=== PATIENT | female | born 2000 | race Hispanic/Latino ===

== ENCOUNTER 2020-03-12 04:24 | Inpatient (IN) | payer OTHER ==
[2020-03-11 14:43] LABS: Absolute Lymphocytes (CBC) 1.8 K/uL (0.7-4.9); Basophils % 0.2 % (0-1.3); Hematocrit 33.3 % (36.0-45.0); Lymphocytes % 18.5 % (15.3-44.8); MPV 11.3 fL (7.6-11.3); RBC Red Blood Cell Count 3.79 M/uL (3.86-4.86)
[2020-03-11 14:44] LABS: Urine Appearance CLOUDY; Urine Bilirubin NEGATIVE (NEG); Urine Blood NEGATIVE (NEG); Urine Color YELLOW; Urine Glucose NEGATIVE (NEG); Urine Protein NEGATIVE (NEG); Urine Specific Gravity 1.025 (1.005-1.030); Urine pH 6.5 (5.0-7.0)
[2020-03-11 14:50] LABS: Protime INR 0.93
[2020-03-11 15:01] LABS: Urine Bacteria >50 /HPF (<20); Urine Culture Reflex Order NOT NEEDED; Urine RBC NONE SEEN /HPF (NONE SEEN)
[2020-03-11 15:02] LABS: Urine Mucus 1+ /HPF (NONE SEEN)
[2020-03-12 03:12] LABS: RPR (Rapid Plasma Reagin) NON-REACT (NON-REACT)
--- OUTSIDE RECORDS SUMMARY | 2020-03-12 04:26 | XMS REPORT | Summary of Care ---
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 Jerrell Serrano MD [address] [place] [phone] Supervision of Clinical Laboratory [facility] other normal - [facility] [address] [facility] [address] [place] [phone] Allergies Active Allergy Reactions Severity Noted Date Comments Amoxicillin Hives 06/25/2019 Vomiting documented as of this encounter (statuses as of 12/28/2019) Medications Medication Sig Dispensed Refills Start Date End Date Status phenazopyridine 200 mg Take 1 tablet by 9 tablet 0 06/25/2019 Active tabletIndications: mouth 3 (three) Acute cystitis with times daily. hematuria 25/iron Take by mouth. 0 Active fum/folic/dha (-1 ORAL) pyridoxine HCl, vitamin Take by mouth. 0 Active B6, (VITAMIN B-6 ORAL) iron Take by mouth. 0 Acti ve bis-gly/FA/C/B12/Ca/suc c (IRON-150 ORAL) hydrOXYzine (VISTARIL) Take 1 capsule 40 capsule 1 09/27/2019 Active 25 mg by mouth 3 capsuleIndications: (three) times Rash and other daily as needed nonspecific skin for Itching. eruption proMETHazine 25 mg Take 1 tablet by 15 tablet 0 09/27/2019 Active tabletIndications: mouth every 6 Nausea and vomiting (six) hours as during needed for Nausea and Vomiting (N/V). metroNIDAZOLE (FLAGYL) Take 1 tablet by 13 tablet 0 10/09/2019 Active 500 mg mouth 2 (two) tabletIndications: BV times daily. (bacterial vaginosis) triamcinolone acetonide Apply to 80 g 2 12/06/2019 Active 0.1 % area(s) 2 (two) ointmentIndications: times daily. Other atopic dermatitis documented as of this encounter (statuses as of 12/28/2019) Active Problems Problem Noted Date Obesity (BMI 30-39.9) 08/02/2019 Estimated Date of Delivery Comments Yes 03/19/2020 Based on last menstr ual period of 06/13/2019 documented as of this encounter (statuses as of 12/28/2019) Immunizations Name Administration Dates Next Due TDAP 12/28/2019 documented as of this encounter Social History Tobacco Use Types Packs/Day Years Used Date Never Smoker Smokeless Tobacco: Never Used Alcohol Use Drinks/Week oz/Week Comments Not Currently Estimated Date of Delivery Comments Yes 03/19/2020 Based on last menstr ual period of 06/13/2019 Sex Assigned at Date Recorded Not on file COVID-19 Exposure Response Date Recorded In the last month, have you been in contact with No / Unsure 12/28/2019 3:30 PM CDT someone who was confirmed or suspected to have Coronavirus / COVID-19? documented as of this encounter Last Filed Vital Signs Not on filedocumented in this encounter Nursing Notes Princess Domi Davis - 12/28/2019 4:30 PM CDT Venipuncture collection performed by clean technique on the right anticubitus. Total of 1 attempts were made. Slight pressure and a bandage/dressing were applied to the site(s). The patient experiencedno complications. The following specimens were processed according to instructions and sent to [facility] laboratories per lab order on 12/28/2019: LT BLUE SST 3 RED LAV 1 PPT DK GREEN (LiHep) DK GREEN (SodH) MARISCAL DK BLUE (K2) DK BLUE (S) ACD Blood Culture NIPT/NTD documented in this encounter Plan of Treatment Date Type Specialty Care Team Description 01/11/2020 Routine Obstetrics & Serrano, Jerrell hanna MD Visit Gynecology [address] [place] [phone] Name Type Priority Associated Diagnoses Date/Ti me GLUCOSE 1 HOUR POST LAB Routine Supervision of other 12/28/2019 4:38 PM CDT PRANDIAL normal CBC WITH DIFF LAB Routine Supervision of other 2019 4:38 PM CDT normal GALV ONLY - SYPHILIS LAB Routine Supervision of other 12/28/2019 4:38 PM CDT IGG/IGM normal HIV 1/2 AG-AB WITH LAB Routine Supervision of other 0 12/28/2019 4:38 PM CDT REFLEX normal Health Maintenance Due Date Last Done Comments VARICELLA VACCINES (1 of 2 - 02/03/2000 2-dose childhood series) MENINGOCOCCAL B VACCINES (1 of 2009 2 - Risk Bexsero 2-dose series) HPV VACCINES (1 - 2-dose 2010 series) WELL CARE VISIT: 12-21 YEARS 2011 (yearly) DTaP,Tdap,and Td Vaccines (1 - 2018 Tdap) INFLUENZA VACCINE (#1) 2020 CHLAMYDIA SCREENING 10/07/2020 10/08/2019, 08/30/2019 Depression Screening 11/29/2020 11/30/2019 MENINGOCOCCAL VACCINE Aged Out No longer eligible based on patient's age to complete this to pic PNEUMOCOCCAL 0-64 YEARS Aged Out No longe r eligible based COMBINED SERIES on patient's age to complete this to pic documented as of this encounter Results Not on filedocumented in this encounter Visit Diagnoses Diagnosis Supervision of other normal documented in this encounter Insurance Payer Benefit Plan / Subscriber ID Effective Dates Phone Addre ss Type Group AETNA AETNA HMO [id number] 2015-[facility] O t [place] [facility] [place] [id number] 2019-Present Medicaid HEALTH PLAN - [facility] MANAGED MEDICAID documented as of this encounter
--- OUTSIDE RECORDS SUMMARY | 2020-03-12 04:26 | XMS REPORT | Summary of Care ---
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 Reason for Visit Reason Comments VISIT Encounter Details Date Type Department Care Team Description 12/28/2019 Routine [facility] Women's Patricia Serrano, Supervision of other normal (Primary Dx); Visit [facility] Supervision of high risk , ante ; [address] Previous section co mplicating ; [facility] Clinics [facility] Rash and other nonspecific skin eruption [address] [place] [address] [phone] [place], [place] [phone] Allergies Active Allergy Reactions Severity Noted Date [...] of this encounter Last Filed Vital Signs Vital Sign Reading Time Taken Comments Blood Pressure 122/61 12/28/2019 3:55 PM CDT Pulse 107 12/28/2019 3:55 PM CDT Temperature - - Respiratory Rate - - Oxygen Saturation - - Inhaled Oxygen Concentration - - Weight 76.4 kg (168 lb 6.4 oz) 12/28/2019 3:55 PM CDT Height 147.3 cm (4' 10") 12/28/2019 3:55 PM CDT Body Mass Index 35.2 12/28/2019 3:55 PM CDT documented in this encounter Patient Instructions Patient InstructionsBettina Kelly Cathy, LI - 12/28/2019 4:15 PM CDT Patient Education Blood Glucose Screening During Your healthcare provider will talk with you about blood glucose screening. Gestational diabetesis diabetes that only women get. Changes in your body during can cause high blood sugar (glucose). This can cause problems for you and your baby. It is a serious condition, but it can be controlled. Who is at risk for gestational diabetes? You are at risk of getting gestational diabetes if any of the following risk factors apply to you.The riskfor gestational diabetes becomes higher as your number of risk factors increases: You are , , , , or . You weigh more than your healthcare provider says is healthy for you. You have a relative with diabetes. You are older than age 25. You had gestational diabetes during a past . You had a stillbirth or a very large baby before. You have a history of abnormal glucose tolerance. You have sugar in your urine at the first visit. You have metabolic syndrome, polycystic ovary syndrome (PCOS), currently use glucocorticoids, or have hypertension. You have multiple gestation (twins, etc.). What happens during a screening? Here is what to expect during a blood glucose screening: While conflicting recommendations for screening exist, the [place] [employer] currently recommends universal screening for gestational diabetes.Your risk for gestational diabetes will determine when youare screened. Women are tested at 24 to 28 weeks of . Women at high risk may be tested when they first learn they are . To do the screening, a blood sample is taken and your blood sugar level is measured. If the results show a high blood sugar level, a glucose tolerance test may be ordered. You will drink a specific amount of sugar.This test measures the amount of time it takes for sugar to leave your blood. The testwill determine if you have gestational diabetes. What to know if you test positive Here are some things you need to know: Gestational diabetes is treatable. The best way to control gestational diabetes is to find out you have itas early as possibleand start treatment quickly. Gestational diabetes can cause problems for the mother during . It can also cause problems with the baby during , delivery, and after. Treatment greatly lowers the chancefor problems. The changes in your body that cause gestational diabetes normally happen only when you are . After the baby is born, your body goes back to normal and the condition goes away. You may be more likely to have type 2 diabetes later, though. So talk to your healthcare provider about ways to help prevent type 2 diabetes. Treating gestational diabetes Here is how to treat gestational diabetes: Youll need to check your blood sugar regularly. You can do this at home by pricking your finger and checking a drop of blood on a glucose monitor. Your healthcare provider will show you how and when to check your blood sugar and discuss your target blood sugar level. To manage your blood sugar, you will be given a special plan. It will likely involve planning your meals and getting regular exercise. Some women need to take a hormone called insulin, or an oral hypoglycemic medicine to help control their blood sugar. [employer] last reviewed this educational content on 02/06/201719993761-2844 [employer]. [address] [place] [address]. All rights reserved. This information is not intended as a substitute for professional medical care. Always follow your healthcare professional's instructions. documented in this encounter Progress Notes Patricia Serrano MD - 12/28/2019 4:15 PM CDT Chief complaint: Chief Complaint Patient presents with VISIT HPI Luciana Farah is a 19 year old female with a 28w2d IUP presents for her routine visit. She reports +FM. She denies pain, contractions, LOF, or VB. The patient has no reports of headache, visual changes, epigastric pain, significant peripheral or facial edema or shortness of breath. Patient did see dermatology for her rash which she has had for several years. She was placed on triamcinolone cream. Histories OB History Para Term AB Living 2 1 1 1 SAB TAB Ectopic Multiple Live Births 1 # Outcome Date GA Lbr Ghulam/2nd Weight Sex Delivery Anes PTL Lv 2 Current 1 Term 04/08/17 38w0d 7 lb 10 oz (3.459 kg) M CS-Unspec YONI Past Medical History: Diagnosis Date Anemia Cyst of right ovary Family History Problem Relation Age of Onset No Significant Medical Problems Mother No Significant Medical Problems Father Diabetes Maternal Grandmother Hypertension Maternal Grandfather Diabetes Paternal Grandfather Hypertension Paternal Grandmother Family Status Relation Name Status Mo Alive Fa Alive MGMo Alive MGFa Alive PGFa Alive PGMo Alive Past Surgical History: Procedure Laterality Date SECTION Social History Socioeconomic History Marital status: Single Spouse name: Not on file Number of children: Not on file Years of education: Not on file Highest education level: Not on file Occupational History Not on file Social Needs Financial resource strain: Not on file Food insecurity Worry: Not on file Inability: Not on file Transportation needs Medical: Not on file Non-medical: Not on file Tobacco Use Smoking status: Never Smoker Smokeless tobacco: Never Used Substance and Sexual Activity Alcohol use: Not Currently Drug use: Not Currently Sexual activity: Yes Partners: Male control/protection: None Lifestyle Physical activity Days per week: Not on file Minutes per session: Not on file Stress: Not on file Relationships Social connections Talks on phone: Not on file Gets together: Not on file Attends oriental orthodox service: Not on file Active member of club or organization: Not on file Attends meetings of clubs or organizations: Not on file Relationship status: Not on file Intimate partner violence Fear of current or ex partner: Not on file Emotionally abused: Not on file Physically abused: Not on file Forced sexual activity: Not on file Other Topics Concern Not on file Social History Narrative Patient denies abuse, feels safe. Orthodox preference: Rastafari No pets at home. Lives in house with boyfriend and son. Social History Substance and Sexual Activity Sexual Activity Yes Partners: Male control/protection: None Labs I have reviewed the patient's labs. Radiology No new radiology. Allergies Luciana is allergic to amoxicillin. Medications Luciana has a current medication list which includes the following prescription(s): triamcinolone acetonide, metronidazole, hydroxyzine, iron bis- gly/fa/c/b12/ca/succ, promethazine, pyridoxine hcl (vitamin b6), 25/iron fum/folic/dha, and phenazopyridine. Review of Systems Constitutional: Negative. HENT: Negative. Eyes: Negative. Respiratory: Negative. Breasts: Negative. Cardiovascular: Negative. Gastrointestinal: Negative. Genitourinary: Negative. Musculoskeletal: Negative. Skin: Negative. Neurological: Negative. Psychiatric/Behavioral: Negative. Endocrine: Endocrine negative BP 122/61 | Pulse 107 | Ht 4' 10" (1.473 m) | Wt 168 lb 6.4 oz (76.4 kg) | LMP 06/13/2019 | BMI35.20 kg/m Pregravid BMI: 31.15 Physical Exam Vitals reviewed. Constitutional: She is oriented to person, place, and time. She appears well- developed and well-nourished. Pulmonary/Chest: Normal inspiratory effort. Abdominal: Abdomen is soft. No mass palpated. No tenderness present. There is no rigidity and no guarding. Neuro/Psychiatric: She has a normal mood and affect. She is oriented to person, place, and time. Skin: Skin normal. Uterus: Soft, gravid, non-tender Assessment/Plan Supervision of other normal (primary encounter diagnosis) Comment: Appears well. See history of present illness Plan: GLUCOSE 1 HOUR POST PRANDIAL, CBC WITH DIFF, GALV ONLY - SYPHILIS IGG/IGM, HIV 1/2 AG-AB WITH REFLEX, TDAP VACCINE, >10 YRS, IM Begin kick count monitoring Previous section complicating Comment: Previous section secondary to breech induction/patient desire per operative [facility] from 04/08/2017. Record reviewed with low transverse uterine incision. Patient currently desires Plan: Continue to evaluate for success of . growth ultrasound as continues Rash and other nonspecific skin eruption Comment: Papular rash over her arms/thighs present for years. Dermatology recommending triamcinolonecream. Previous total bile acids/CMP normal Obesity in Comment: BMI 35.2. 6 lb weight gain since last visit, 19 lb TWG. Dietary counseling - avoid sweets, added sugars, sweetened beverages and processed carbs. Concentrate on lean proteins, vegetables and fruits, and healthy fats. Drink plenty of water. Try to get 30 minutes of moderate exercise/walking onmost days. Return to clinic in 3 weeks. This visit did not involve counseling and coordination that comprised more than 50% of the visit time. Patricia Serrano MD documented in this encounter Miscellaneous Notes OB Summary Note - Patricia Serrano MD - 12/28/2019 4:15 PM CDTAge: 19 year old GA: 28w2d Supervision of other normal (primary encounter diagnosis) Comment: Appears well. See history of present illness Plan: GLUCOSE 1 HOUR POST PRANDIAL, CBC WITH DIFF, GALV ONLY - SYPHILIS IGG/IGM, HIV 1/2 AG-AB WITH REFLEX, TDAP VACCINE, >10 YRS, IM Begin kick count monitoring Previous section complicating Comment: Previous section secondary to breech induction/patient desire per operative report[facility] from 04/08/2017. Record reviewed with low transverse uterine incision. Patient currently desires Plan: Continue to evaluate for success of . growth ultrasound as continues Rash and other nonspecific skin eruption Comment: Papular rash over her arms/thighs present for years. Dermatology recommending triamcinolonecream. Previous total bile acids/CMP normal Obesity in Comment: BMI 35.2. 6 lb weight gain since last visit, 19 lb TWG. Dietary counseling - avoid sweets, added sugars, sweetened beverages and processed carbs. Concentrate on lean proteins, vegetables and fruits, and healthy fats. Drink plenty of water. Try to get 30 minutes of moderate exercise/walking onmost days. Return to clinic in 3 weeks. Patricia Serrano MD documented in this encounter Plan of Treatment Date Type Specialty Care Team Description 01/11/2020 Routine Obstetrics & Jerrell Serrano MD Visit Gynecology [address] [place] [phone] Name Type Priority Associated Diagnoses Date/Ti me GLUCOSE 1 HOUR POST LAB Routine Supervision of other 12/28/2019 4:38 PM CDT PRANDIAL normal GALV ONLY - [facility]ILIS LAB Routine Supervision of other 12/28/2019 4:38 PM CDT IGG/IGM normal HIV 1/2 AG-AB WITH LAB Routine Supervision of other 0 12/28/2019 4:38 PM CDT REFLEX normal Name Type Priority Associated Diagnoses Order S chedule GLUCOSE 1 HOUR POST LAB Routine Supervision of other Expected: 12/28/2019, PRANDIAL normal Expires: GALV ONLY - [facility] LAB Routine Supervision of other Expected: 12/28/2019, IGG/IGM normal Expires: HIV 1/2 AG-AB WITH LAB Routine Supervision of other E xpected: 12/28/2019, REFLEX normal Expires: Health Maintenance Due Date Last Done Comments [...] to pic documented as of this encounter Procedures Procedure Name Priority Date/Time Associated Diagnosis Comme nts TDAP VACCINE, >11 YRS, Routine 12/28/2019 4:18 PM Supervision of other IM CDT normal documented in this encounter Results CBC WITH DIFF (12/28/2019 4:38 PM CDT) Pathologist Sig nature WBC 11.57 (H) 4.30 - 11.10 [facility] 10*3/L SERVICES RBC 3.73 (L) 3.93 - 5.25 [facility] 10*6/L SERVICES HGB 11.8 11.6 - 15.0 [facility] g/dL SERVICES HCT 36.0 35.7 - 45.2 % [facility] MCV 96.5 (H) 80.6 - 95.5 fL [facility] MCH 31.6 25.9 - 32.8 pg [facility] MCHC 32.8 31.6 - 35.1 [facility] g/dL SERVICES RDW-SD 42.5 39.0 - 49.9 fL [facility] RDW-CV 12.2 12.0 - 15.5 % [facility] PLT 154 (L) 166 - 358 [facility] 10*3/L SERVICES MPV 11.9 9.5 - 12.9 fL [facility] NRBC/100 WBC 0.0 0.0 - 10.0 /100 [facility] WBCs SERVICES NRBC x10^3 <0.01 10*3/L [facility] GRAN MAT (NEUT) % 72.5 % [facility] IMM GRAN % 0.90 % [facility] LYMPH % 16.1 % [facility] MONO % 9.9 % [facility] EOS % 0.3 % [facility] BASO % 0.3 % [facility] GRAN MAT x10^3(ANC) 8.41 (H) 1.88 - 7.09 [facility] 10*3/uL SERVICES IMM GRAN x10^3 0.10 (H) 0.00 - 0.06 [facility] 10*3/uL SERVICES LYMPH x10^3 1.86 1.32 - 3.29 [facility] 10*3/uL SERVICES MONO x10^3 1.14 (H) 0.33 - 0.92 [facility] 10*3/uL SERVICES EOS x10^3 0.03 0.03 - 0.39 [facility] 10*3/uL SERVICES BASO x10^3 0.03 0.01 - 0.07 [facility] 10*3/uL SERVICES Specimen Blood - ARM, LEFT Performing Organization Address City/State/Zipcode Phone Number [facility] CLIA: [id number] [place] [address] [place] [address] documented in this encounter Visit Diagnoses Diagnosis Supervision of other normal - Primary Supervision of high risk , ante Previous section complicating p regnancy Previous delivery, unspecified as to episode of care or not applicable Rash and other nonspecific skin eruption documented in this encounter Insurance Payer Benefit Plan / Subscriber ID Effective Dates Phone Addre ss Type Group AETNA AETNA HMO [id number] [facility] [place] [facility] [place] [id number] 2019-Present Medicaid HEALTH PLAN - HEALTH MANAGED MEDICAID documented as of this encounter
--- OUTSIDE RECORDS SUMMARY | 2020-03-12 04:26 | XMS REPORT | Continuity of Care Document ---
:1999 Author Organization [facility] t Address [address] [place] [address] Care Team Providers Name Role Phone Provider Primary Care Physician Unavailable Maggie TODD Attending Clinician Doctor Unassigned, Name Attending Clinician Unavailable Maximilian Linares MD Attending Clinician Bharti Lockett RN Attending Clinician Unavailable Benjamin DO Attending Clinician Maximilian Linares MD Admitting Clinician Payers Payer Name Policy Type Policy Effective Date Expiration Date Sour ce Number AETNAAETNA [id number] 2015 [facility],POS,EPO, 00:00:00 Gonzalo CHAUHAN/[id number] /-Present [employer] Problems Condition Condition Condition Status Onset Resolution Last Treating Co mments Source Name Details Category Date Date Treatment Clinician Date Acute Acute Diagnosis Active [facility] pharyngiti Eduarda kes - s, s, Memoria unspecifie unspecifie l d etiology d etiology Ou tpati ent Clinics Acute Acute Diagnosis Active [facility] bronchitis bronchitis Eduarda kes - , , Memoria unspecifie unspecifie l d organism d organism Ou tpati ent Clinics Encounter Encounter Diagnosis Active [facility] for for [facility] - preventati preventati Me moria ve adult ve adult [facility] Outpati care exam care exam ent with with Clinics abnormal abnormal findings findings Allergies, Adverse Reactions, Alerts Allergy Allergy Status Severity Reaction(s) Onset Inactive Treating Comm ents Source Name Type Date Date Clinician Amoxicil Adverse Active Info Not [facility] Reaction Available [facility] Social History Social Habit Start Date Stop Date Quantity Comments Source Sex Assigned At Evelin be [facility] Medications Ordered Filled Start Stop Current Ordering Indication Dosage Frequency Signature Comments Components Source Medication Medication Date Date Medication? Clinician (SIG) Name Name Mariana Peña 2018- No Marko [address] [facility] Constantinees 09-06 [place] as needed Luke s - 00:00: 00:00 Memoria 00 :00 l Outpati ent Clinics Azithromyci Azithromyci 2017- No Marko [address] [address] n n 09-06 [place] on the [facility] - 00:00: 00:00 first day, Memori a 00 :00 then 1 l tablet Outpati daily for ent 4 days Clinics Procedures Procedure Date / Time Performed Performing Clinician [facility] e BREAST COMPLETE 2019-04-12 15:26:51 Lesvia Alexander M ethodist BILATERAL Plan of Care Planned Activity Planned Date Details Comments Source Future Scheduled 2020-02-03 Screening for Peter Gregory thodist Test 00:00:00 malignant neoplasm of cervix (procedure) [code = 578793574] Future Scheduled 2019-12-08 INFLUENZA VACCINE [place] [facility] Test 00:00:00 [code = INFLUENZA VACCINE] Future Scheduled 2015 CHLAMYDIA SCREENING [place] [facility] Test 00:00:00 [code = CHLAMYDIA SCREENING] Encounters Start End Encounter Admission Attending Care Care Encounter Source Date/Time Date/Time Type Type Clinicians Facility Department ID 2020-03-02 2020-03-02 Telephone KANIKA Serrano [id number] 00:00[facility]00 [id number] [id number] 2020-02-12 2020-02-12 Orders Doctor ROWLEY [id number] 00:00:00 00:00:00 Only Unassigned, WILL [id number] [place] [facility] [id number] 2020-02-09 2020-02-09 Telephone Maggie [facility] [id number] 00:00:00 00:00:00 Patricia Y [facility] [id number] CLINICS 4.2.7.2.686 [id number] 2020-02-08 2020-02-08 Routine Maggie [facility] [id number] 16:14:29 16:55:34 Patricia Y HEALTH [id number] Visit CLINICS 4.2.7.2.686 [id number] 2020-01-11 2020-01-11 Routine Serrano, [facility] 1.2.840.114 [id number] 16:12:25 16:36:51 Patricia Y HEALTH [id number] Visit CLINICS [id number] [id number] 2020-01-01 2020-01-01 [facility] 1.2.840.114 [id number] 09:16:00 10:50:00 Encounter Cam Ngoc 350.1.13.10 [place] 4.2.7.2.686 [place] [id number] 2020-01-01 2020-01-01 Nurse Bharti ROWLEY 1.2.840.114 [id number] 00:00:00 00:00:00 Triage LevyWILL [id number] [facility] [id number] [id number] 2020-01-01 2020-01-01 Orders Doctor AMRIK 1.2.840.114 [id number] 00:00:00 00:00:00 Only Unassigned, WILL [id number] [place] [facility] 4.2.7.2.686 [id number] 2019-12-28 2019-12-28 Routine Serrano, [facility] 1.2.840.114 [id number] 15:31:31 17:38:24 Patricia Y HEALTH [id number] Visit CLINICS 4.2.7.2.686 [id number] 2019-04-12 2019-04-12 [facility] [id number] [place] 00:00:00 00:00:[address] 2017-09-06 2017-09-06 Outpatient Raoul Sandoval [id number] [facility] 14:15:00 14:15:00 [facility] Results Test Description Test Time Test Comments Results Result Sourc e Comments US Breast PROCEDURE: US BREAST [place] Complete 5 COMPLETE BILATERAL Method ist Bilateral 15:43:35 Bilateral real-time whole breast sonography included all four quadrants and the retroareolar regions under close supervision by the radiologist. CLINICAL HISTORY: 19-year-old female presents for further evaluation of left breast tenderness. The patient reports that since 1 week prior she noticed tenderness and increased sensitivity of her left breast and a palpable lump. COMPARISON: None FINDINGS: Bilateral transverse and longitudinal evaluation of both breast demonstrates no solid or cystic masses of concern in either breast. The area of palpable concern as demonstrated by the patient at the 6:00 location of the left breast demonstrate no suspicious sonographic finding. IMPRESSION: No sonographic evidence of malignancy in either breast. No sonographic correlate for the area of palpable concern in the left breast or for the left breast tenderness. The patient was recommended to follow-up with the referring physician and management should be based under clinical grounds. Findings and recommendations discussed with the patient at the time of the breast ultrasound. BI-RADS 1: NEGATIVE [id number]
--- OUTSIDE RECORDS SUMMARY | 2020-03-12 04:26 | XMS REPORT | Clinical Summary ---
:1999 Author Organization [facility] Address [address] [place] [address] Care Team Providers Name Role Phone Provider, Unknown Primary Care Provider Unavailable Allergies Not on File Medications Not on file Active Problems Not on file Encounters Date Type Specialty Care Team Description 04/12/2019 Hospital Encounter Radiology Lesvia Alexander DO Breast pain 04/10/2019 Transcribe Orders Access Lesvia Alexander DO Breast p ain (Primary Dx) after 03/12/2019 Social History Tobacco Use Types Packs/Day Years Used Date Never Assessed Sex Assigned at Date Recorded Not on file Last Filed Vital Signs Not on file Plan of Treatment Health Maintenance Due Date Last Done Comments CHLAMYDIA SCREENING 2015 INFLUENZA VACCINE 12/08/2019 CERVICAL CANCER SCREENING 02/03/2020 Procedures Procedure Name Priority Date/Time Associated Diagnosis Comme nts US BREAST COMPLETE Routine 04/12/2019 3:26 PM Breast pain Re sults for this BILATERAL DIAL LATHE OPERATOR procedure are i n the results section. after 03/12/2019 Results US Breast Complete Bilateral (04/12/2019 3:26 PM DIAL LATHE OPERATOR) Specimen Narrative Performed At PROCEDURE: US BREAST COMPLETE BILATERAL [facility] Bilateral real-time whole breast sonography included a ll four quadrants and the retroareolar regions under close supervision by the radiologist. CLINICAL HISTORY: 19-year-old female presents for furt her evaluation of left breast tenderness. The patient reports that since 1 week prior she noticed tenderness and increased sensitivity of her le ft breast and a palpable lump. COMPARISON: None FINDINGS: Bilateral transverse and longitudinal eval uation of both breast demonstrates no solid or cystic masses of sarthak rn in either breast. The area of palpable concern as demonstrated b y the patient at the 6:00 location of the left breast dem onstrate no suspicious sonographic finding. IMPRESSION: No sonographic evidence of malignancy in either breast. No sonographic correlate for the area of palpable concern in the left breast or for the left breast tenderness. The patient was recommended to follow-up with the referring physician cathy nd management should be based under clinic al grounds. Findings and recommendations discussed with the nate smith at the time of the breast ultrasound. BI-RADS 1: NEGATIVE [id number] Performing Organization Address City/State/ZIP Code Phon e Number [facility] [address] [place] [address] after 03/12/2019 Advance Directives For more information, please contact: [phone] Type Date Recorded Patient Coding And Reimbursement Specialist Explanati on Advance Directives, Living Will and Medical Power of Director Of Industrial Relations
[2020-03-12] MEDS ORDERED: Ringers Lactate 1,000 ML IV PRN (04:27)
--- OUTSIDE RECORDS SUMMARY | 2020-03-12 04:27 | XMS REPORT | Summary of Care ---
:1999 Author Organization [facility] Address [address] [place] [address] Care Team Providers Name Role Phone Pcp, Does Not Have A Primary Care Provider MD Maggie Agriscience Technology Instructor Reason for Visit Reason Onset Date Comments CONTRACTIONS 01/01/2020 Encounter Details Date Type Department Care Team Description 01/01/2020 Nurse Triage [facility] Bharti Lockett, [address] [place], [place] [address] [address] [place] [address] [place] [address] Allergies Active Allergy Reactions Severity Noted Date Comments Amoxicillin Hives 06/25/2019 Vomiting documented as of this encounter (statuses as of 01/01/2020) Medications Medication Sig Dispensed Refills Start Date [...] as of this encounter (statuses as of 01/01/2020) Active Problems Problem Noted Date Obesity (BMI 30-39.9) 08/02/2019 Estimated Date of Delivery Comments Yes 03/19/2020 Based on last menstr ual period of 06/13/2019 documented as of this encounter (statuses as of 01/01/2020) Immunizations Name Administration Dates Next Due TDAP [...] Signs Not on filedocumented in this encounter Miscellaneous Notes Telephone Encounter - [place]fa Reed RN - 01/01/2020 6:54 AM CDT Triage Assessment Last Clinic Visit: 12/28/2019 Routine Visit Primary Symptom: Abdominal Pain - Onset / Duration: Last night around 7:30pm Location / Description: Abdominal Pain and cramping, comes and goes every 5 to 10 minutes since lastnight. Pain and intensity has increased since started. Pain / Severity: 4/10 Associated Symptoms: Lower back pain Fever / Method: Denies Hydration: 3 Bottles water, voiding more frequently due to pressure Treatment so far: Denies Effect on ADL's: Some changes Gestational Weeks: 29 Weeks Rupture Membranes: Denies Bleeding / Spotting / Pads per hour: Some leakage "Always feels wet" Movement: Last felt 10 minutes ago Para / : EDC: 03/20/2020 Pre-existing condition / Immunocompromised: None Reason for Disposition Contractions < 10 minutes apart for 1 hour (i.e., 6 or more contractions an hour) Luciana Farah is a 19 year old female, 29 weeks complains of abdominal pain and cramping, comes and goes every 5 to 10 minutes since last night. Pain and intensity has increasedsince started. Assessment and triage completed per protocol. Patient verbalizes understanding and agrees to follow POC. Protocols used: - LABOR - [id number] Telephone Encounter - [place] Reed RN - 01/01/2020 6:54 AM CDT Regardin weeks c/o abdominal discomfort ----- Message from Fernando Blue sent at 01/01/2020 6:05 AM CDT ----- Luciana Farah is a 19 year old female documented in this encounter Plan of Treatment Date Type Specialty Care Team Description 01/11/2020 Routine Obstetrics & SerranoJerrell MD Visit Gynecology [address] [place] [address] [phone] Health Maintenance Due Date Last Done Comments VARICELLA VACCINES (1 of 2 - 02/03/2000 2-dose childhood series) MENINGOCOCCAL B VACCINES (1 of 2009 2 - Risk Bexsero 2-dose series) HPV VACCINES (1 - 2-dose 2010 series) WELL CARE VISIT: 12-21 YEARS 2011 (yearly) INFLUENZA VACCINE (#1) 2020 CHLAMYDIA SCREENING 10/07/2020 10/08/2019, 08/30/2019 Depression Screening 11/29/2020 11/30/2019 DTaP,Tdap,and Td Vaccines (2 - 12/27/2029 12/28/2019 Td) MENINGOCOCCAL VACCINE Aged Out No longer eligible based on patient's age to complete this to pic PNEUMOCOCCAL 0-64 YEARS Aged Out No longe r eligible based COMBINED SERIES on patient's age to complete this to pic documented as of this encounter Results Not on filedocumented in this encounter Insurance Payer Benefit Plan / Subscriber ID Effective Dates Phone Addre ss Type Group AETNA AETNA O [id number] 2015-[facility] O t [place] [employer] [place] [employer] [id number] 2019-Present Medicaid HEALTH PLAN - [facility] MANAGED MEDICAID documented as of this encounter
--- OUTSIDE RECORDS SUMMARY | 2020-03-12 04:27 | XMS REPORT | Summary of Care ---
:1999 Author Organization [facility] Address [address] [place] [address] Care Team Providers Name Role Phone Pcp, Does Not Have A Primary Care Provider MD Maggie [id number] Armor Crewman Reason for Visit Auth/Cert Status Reason Specialty Diagnoses / Procedures Referred By C ontact Referred To Contact Obstetrics Diagnoses Abd pain & cramping [facility] Labor And Delivery [address] [place] [address] Phone: Fax: Encounter Details Date Type Department Care Team Description 01/01/2020 Hospital Encounter [facility] Labor and Delivery Jeri Linares MD [address] [place] [address] [facility] [address] [place], [place] [address] Allergies Active Allergy Reactions Severity Noted Date [...] Sign Reading Time Taken Comments Blood Pressure - - Pulse 99 01/01/2020 9:35 AM CDT Temperature 36.9 C (98.5 F) 01/01/2020 9:35 AM CDT Respiratory Rate 18 01/01/2020 9:35 AM CDT Oxygen Saturation - - Inhaled Oxygen Concentration - - Weight 81.2 kg (179 lb) 01/01/2020 9:35 AM CDT Height 147.3 cm (4' 10") 01/01/2020 9:35 AM CDT Body Mass Index 37.41 01/01/2020 9:35 AM CDT documented in this encounter Discharge Instructions Kenia Bryan RN - 01/01/2020May use maternity belt and compression socks. Continue with any instructions given to you by your Dr. Stay well hydrated and empty your bladder often. May take Tylenol as needed, per container instructions AttachmentsThe following attachments cannot be sent through Care Everywhere. Common Changes During - VIDEO (Yakut)documented in this encounter Plan of Treatment Date Type Specialty Care Team Description 01/11/2020 Routine Obstetrics & Serrano, Jerrell hanna MD Visit Gynecology [address] [place] [phone] Name Type Priority Associated Diagnoses Date/Ti me COVID-19 (ID NOW RAPID LAB Routine 12/31 10:11 AM CDT TESTING) URINE CULTURE LAB Routine 01/01/2020 10: 47 AM CDT Name Type Priority Associated Diagnoses Order S chedule COVID-19 (ID NOW RAPID LAB Routine ONCE for 1 Occurrences TESTING) starting 2019 until 01/01/2020 URINE CULTURE LAB Routine ONCE for 1 Occ urrences starting 2019 until 01/01/2020 Health Maintenance Due Date Last Done Comments [...] Results Not on filedocumented in this encounter Additional Health Concerns Infection Onset Date Last Indicated Resolved Time COVID-19 Rule Out 01/01/2020 01/01/2020 documented as of this encounter Insurance Payer Benefit Plan / Subscriber ID Effective Dates Phone Addre ss Type Group AETNA AETNA HMO [id number] 2015-[facility] O t [place] [facility] [place] CHILDRENS [id number] 2019-Present Medicaid HEALTH PLAN - HEALTH MANAGED MEDICAID documented as of this encounter
--- OUTSIDE RECORDS SUMMARY | 2020-03-12 04:27 | XMS REPORT | Summary of Care ---
:1999 Author Organization [facility] Address [address] [place] [address] Care Team Providers Name Role Phone Pcp, Does Not Have A Primary Care Provider MD Maggie Foreign Agent Reason for Visit Reason Comments VISIT Encounter Details Date Type Department Care Team Description 12/28/2019 Routine [facility] Women's Patricia Serrano, Supervision of other normal (Primary Dx); Visit [facility]Fel[facility] TODD Supervision of high risk , ante ; [address] Previous section co mplicating ; [facility] Clinics [facility] Rash and other nonspecific skin eruption [address] [place] [address] [address] [place], [place] [phone] Allergies Active Allergy Reactions Severity Noted Date [...] While conflicting recommendations for screening exist, the [employer] currently recommends [...] medicine to help control their blood sugar. [employer] last reviewed this educational content on 02/06/201719997688-5110 [employer]. [address] [place] [address]. All rights reserved. This information is not [...] file Gets together: Not on file Attends latter day service: Not on file Active member of [...] History Narrative Patient denies abuse, feels safe. Baptist preference: Quaker No pets at home. Lives in house [...] to breech induction/patient desire per operative reportin [facility] from 04/08/2017. Record reviewed with low [...] exercise/walking onmost days. Return to clinic in 2 weeks. This visit did not involve counseling [...] to breech induction/patient desire per operative reportin [facility] from 04/08/2017. Record reviewed with low [...] exercise/walking onmost days. Return to clinic in 2 weeks. Patricia Serrano MD documented in this encounter Plan of Treatment Date Type Specialty Care Team Description 01/11/2020 Routine Obstetrics & Jerrell Serrano MD Visit Gynecology [address] [place] [phone] Name Type Priority Associated Diagnoses Date/Ti me [...] LEFT Performing Organization Address City/State/Zipcode Phone Number [facility] CLIA: [id number] [place] [address] [place] [address] documented in this encounter Visit Diagnoses Diagnosis Supervision of other normal - Primary Supervision of high risk , ante Previous section complicating p regnancy Previous delivery, unspecified as to episode of care or not applicable Rash and other nonspecific skin eruption documented in this encounter Insurance Payer Benefit Plan / Subscriber ID Effective Dates Phone Addre ss Type Group AETNA AETNA HMO [id number] [facility] [place] [facility] [place] CHILDRENS [id number] 2019-Present Medicaid HEALTH PLAN - HEALTH MANAGED MEDICAID documented as of this encounter
--- OUTSIDE RECORDS SUMMARY | 2020-03-12 04:27 | XMS REPORT | Summary of Care ---
:1999 Author Organization [facility] Address [address] [place] [address] Care Team Providers Name Role Phone Pcp, Does Not Have A Primary Care Provider MD Maggie Behavioral Health Care Manager Encounter Details Date Type Department Care Team Description 01/01/2020 Orders Only [facility] Doctor Unassigned, No [address] [facility] Name [address] [address] Allergies Active Allergy Reactions Severity Noted Date [...] Signs Not on filedocumented in this encounter Plan of Treatment Date Type Specialty Care Team Description 01/11/2020 Routine Obstetrics & Serrano, Jerrell hanna MD Visit Gynecology [address] [place] [phone] Health Maintenance Due Date Last Done Comments [...] Name Priority Date/Time Associated Diagnosis Comme nts ASSIGNMENT OF BENEFITS Routine 01/01/2020 9:14 AM CDT documented in this encounter Results Not on filedocumented in this encounter Insurance Payer Benefit Plan / Subscriber ID Effective Dates Phone Addre ss Type Group AETNA AETNA O [id number] 2015-[facility] O t [place] [facility] [place] [id number] 2019-Present Medicaid HEALTH PLAN - [facility] MANAGED MEDICAID documented as of this encounter
--- OUTSIDE RECORDS SUMMARY | 2020-03-12 04:27 | XMS REPORT | Summary of Care ---
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 Reason for Visit Reason Comments VISIT Encounter Details Date Type Department Care Team Description 01/11/2020 Routine [facility] Patricia Serrano, Supervision of other normal (Primary Dx); Visit Healthcare-Feliberto TODD Previous section complicating p regnancy; [address] Rash and other nonspecific s kin eruption [facility] [address], 3[address] Floor [phone] [place], [place] [phone] [place] [address] [phone] Allergies Active Allergy Reactions Severity Noted Date Comments Amoxicillin Hives 06/25/2019 Vomiting documented as of this encounter (statuses as of 01/11/2020) Medications Medication Sig Dispensed Refills Start Date [...] as of this encounter (statuses as of 01/11/2020) Active Problems Problem Noted Date Obesity (BMI 30-39.9) 08/02/2019 Estimated Date of Delivery Comments Yes 03/19/2020 Based on last menstr ual period of 06/13/2019 documented as of this encounter (statuses as of 01/11/2020) Immunizations Name Administration Dates Next Due TDAP [...] been in contact with No / Unsure 01/11/2020 4:21 PM CDT someone who was confirmed or suspected to have Coronavirus / COVID-19? documented as of this encounter Last Filed Vital Signs Vital Sign Reading Time Taken Comments Blood Pressure 111/64 01/11/2020 4:21 PM CDT Pulse 113 01/11/2020 4:21 PM CDT Temperature - - Respiratory Rate - - Oxygen Saturation - - Inhaled Oxygen Concentration - - Weight 77.7 kg (171 lb 4.8 oz) 01/11/2020 4:21 PM CDT Height 147.3 cm (4' 10") 01/11/2020 4:21 PM CDT Body Mass Index 35.8 01/11/2020 4:21 PM CDT documented in this encounter Patient Instructions Patient InstructionsBettina Kelly MA - 01/11/2020 4:15 PM CDT Patient Education : Your Third Trimester Changes As the baby grows, your body changes too. You may also see signs that your body is getting ready forlabor. Be patient. Within a few more weeks, your baby will be born. How you are changing Your body is preparing for the of your baby. Some of the most common changes are listed below.If you have any questions or concerns, ask your healthcare provider: Youll gain more weight from fluids, extra blood, and fat deposits. Your breasts will grow as your body gets ready to feed the baby. They may be more tender. You mayalso notice a slight yellow or white discharge from the nipples. Discharge from your vagina may increase. This is normal. You might see some skin color changes on your forehead, cheeks, or nose. Most of these will go away after you deliver. How your baby is growing Month 7 Your babycan open and close his or her eyes andweighs around 4 pounds.If born prematurely (tooearly), your baby would likely survive with special care. Month 8 Your baby is building up body fat andweighs around 6 pounds. Month 9 Your baby weighs nearly 7 pounds and is about 19 to 21 inches long. In other words, any day now... [employer] last reviewed this educational content on 06/09/201719997827-2498 The [employer]. [address] [place] [address]. All rights reserved. This information is not intended as a substitute for professional medical care. Always follow your healthcare professional's instructions. documented in this encounter Progress Notes Patricia Serrano MD - 01/11/2020 4:15 PM CDT Chief complaint: Chief Complaint Patient presents with VISIT HPI Luciana Farah is a 19 year old female with a 30w2d IUP presents for her routine visit. She reports +FM. She denies pain, contractions, LOF, or VB. The patient has no reports of headache, visual changes, epigastric pain, facial edema or shortness of breath. She has had some swelling in her feet which resolves with elevation. patient patient was seen in [facility] deliveryin [place] on 01/01/20 for cramps. No contractions were noted,. urine culture was negative. Patient was instructed to use a belt and was discharged home. Histories OB History Para Term AB Living [...] file Gets together: Not on file Attends church service: Not on file Active member of [...] History Narrative Patient denies abuse, feels safe. Episcopal preference: Episcopal No pets at home. Lives in house [...] Negative. Psychiatric/Behavioral: Negative. Endocrine: Endocrine negative BP 111/64 | Pulse 113 | Ht 4' 10" (1.473 m) | Wt 171 lb 4.8 oz (77.7 kg) | LMP 06/13/2019 | BMI35.80 kg/m Pregravid BMI: 31.15 Physical Exam Vitals reviewed. Constitutional: She is oriented to person, place, and time. She appears well- developed and well-nourished. Cardiovascular: No edema appreciated Pulmonary/Chest: Normal inspiratory effort. Abdominal: Abdomen is soft. No mass palpated. No tenderness present. There is no rigidity and no guarding. Neuro/Psychiatric: She has a normal mood and affect. She is oriented to person, place, and time. Skin: Skin normal. Uterus: Soft, gravid, non-tender Cervix: Closed/thick/high Assessment/Plan Luciana Farah is a 19 year old female with a 30w2d IUP Continue kick count monitoring Previous section complicating Comment: Records in [facility] from 04/08/2017 reviewed, low transverse uterine incision Plan: Patient desires Rash and other nonspecific skin eruption Comment: Patient has had papular rash for years. Dermatology recommending triamcinolone cream Return to clinic in 2 weeks. This visit did not involve counseling and coordination that comprised more than 50% of the visit time. Patricia Serrano MD documented in this encounter Miscellaneous Notes OB Summary Note - Patricia Serrano MD - 01/11/2020 4:15 PM CDTAge: 19 year old GA: 30w2d Luciana Farah is a 19 year old female with a 30w2d IUP Continue kick count monitoring Previous section complicating Comment: Records in [facility] from 04/08/2017 reviewed, low transverse uterine incision Plan: Patient desires Rash and other nonspecific skin eruption Comment: Patient has had papular rash for years. Dermatology recommending triamcinolone cream Return to clinic in 2 weeks. Patricia Serrano MD documented in this encounter Plan of Treatment Date Type Specialty Care Team Description 01/25/2020 Routine Obstetrics & Jerrell Serrano MD Visit Gynecology [address] [place] [phone] 02/08/2020 Routine Obstetrics & Jerrell Serrano MD Visit Gynecology [address] [place] [phone] 02/22/2020 Routine Obstetrics & Jerrell Serrano MD Visit Gynecology [address] [place] [phone] 02/29/2020 Routine Obstetrics & Jerrell Serrano MD Visit Gynecology [address] [place] [phone] 03/07/2020 Routine Obstetrics & Jerrell Serrano MD Visit Gynecology [address] [place] [phone] 03/14/2020 Routine Obstetrics & Jerrell Serrano MD Visit Gynecology [address] [place] [phone] 03/21/2020 Routine Obstetrics & Serrano, Jerrell hanna MD Visit Gynecology [address] [place] [phone] Health Maintenance Due Date Last Done Comments [...] Diagnosis Supervision of other normal - Primary Previous section complicating p regnancy Previous delivery, unspecified as to episode of care or not applicable Rash and other nonspecific skin eruption documented in this encounter Insurance Payer Benefit Plan / Subscriber ID Effective Dates Phone Addre ss Type Group AETNA AETNA O [id number] 2015-[facility] O t [place] [id number] 2019-Present Medicaid HEALTH PLAN - HEALTH MANAGED MEDICAID documented as of this encounter
--- OUTSIDE RECORDS SUMMARY | 2020-03-12 04:27 | XMS REPORT | Summary of Care ---
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 Reason for Visit Reason Comments VISIT Encounter Details Date Type Department Care Team Description 02/08/2020 Routine [facility] Patricia Serrano, Nausea and vomiting, intractability of vomiting not specified, unspecified vomiting type (Primary Dx); Visit Women's MD Supervision of high risk , ante ; [address] Supervi tony of other normal ; on [facility] Previous section complicating p regnancy; [place], [place] Nausea and vom iting during ; Clinics [phone] Obesity (BMI 30-39.9) [address] [place] [address] Drive, [address]rd [place] [phone] Allergies Active Allergy Reactions Severity Noted Date Comments Amoxicillin Hives 06/25/2019 Vomiting documented as of this encounter (statuses as of 02/09/2020) Medications Medication Sig Dispensed Refills Start Date [...] as of this encounter (statuses as of 02/09/2020) Active Problems Problem Noted Date Obesity (BMI 30-39.9) 08/02/2019 Estimated Date of Delivery Comments Yes 03/19/2020 Based on last menstr ual period of 06/13/2019 documented as of this encounter (statuses as of 02/09/2020) Immunizations Name Administration Dates Next Due TDAP [...] been in contact with No / Unsure 02/08/2020 4:13 PM CDT someone who was confirmed or suspected to have Coronavirus / COVID-19? documented as of this encounter Last Filed Vital Signs Vital Sign Reading Time Taken Comments Blood Pressure 119/68 02/08/2020 4:25 PM CDT Pulse 97 02/08/2020 4:25 PM CDT Temperature - - Respiratory Rate - - Oxygen Saturation - - Inhaled Oxygen Concentration - - Weight 78.9 kg (174 lb) 02/08/2020 4:25 PM CDT Height 147.3 cm (4' 10") 02/08/2020 4:25 PM CDT Body Mass Index 36.37 02/08/2020 4:25 PM CDT documented in this encounter Patient Instructions Patient InstructionsBettina Kelly MA - 02/08/2020 4:15 PM CDT Patient Education : Your [...] long. In other words, any day now... [employer] last reviewed this educational content on 06/09/201719999802-5645 The [employer]. [address] [place] [address], [place] [address]. All rights reserved. This information is not intended as a substitute for professional medical care. Always follow your healthcare professional's instructions. documented in this encounter Progress Notes Patricia Serrano MD - 02/08/2020 4:15 PM CDT Chief complaint: Chief Complaint Patient presents with VISIT HPI Luciana Farah is a 20 year old female with a 34w3d IUP presents for her routine visit. She reports +FM. She denies pain, contractions, LOF, or VB. The patient has no reports of headache, visual changes, epigastric pain, significant peripheral or facial edema or shortness of breath. Patient did have nausea with some vomiting and felt faint at work. She took Zofran for nausea. Patient states her stomach is still a bit upset. She denies fever/chills, cough, diarrhea. She is tolerating by mouth liquids and some solids. Histories OB History Para Term AB Living [...] file Gets together: Not on file Attends mosque service: Not on file Active member of [...] History Narrative Patient denies abuse, feels safe. Uatsdin preference: Anabaptism No pets at home. Lives in house [...] Negative. Breasts: Negative. Cardiovascular: Negative. Gastrointestinal: Negative. Nausea Genitourinary: Negative. Musculoskeletal: Negative. Skin: Negative. Neurological: Negative. Psychiatric/Behavioral: Negative. Endocrine: Endocrine negative BP 119/68 | Pulse 97 | Ht 4' 10" (1.473 m) | Wt 174 lb (78.9 kg) | LMP 06/13/2019 | BMI 36.37 kg/m Pregravid BMI: 31.15 Physical Exam Assessment/Plan Supervision of high risk , antepartum Plan: Continue Monitoring Previous section complicating Comment: Records in [facility] from 04/08/2019, low transverse uterine incision Plan: Continue plans as per patient desire We will repeat ultrasound later in the third trimester to assess growth/weight Nausea and vomiting during Comment: GI upset today without other associated symptoms Plan: We will COVID screen.Patient states that she wants to go to the lab in [place]. She is aware that she should isolate until this result has been reviewed CMP, CBC Continue by mouth fluid intake Obesity and Comment: BMI 36.37. 3 lb weight Again since last visit, 25 lb TWG. Dietary counseling - avoid sweets, added sugars, sweetened beverages and processed carbs. Concentrate on lean proteins, vegetables andfruits, and healthy fats. Drink plenty of water. Try to get 30 minutes of moderate exercise/walking on most days. Return to clinic in 2 weeks. This visit did not involve counseling and coordination that comprised more than 50% of the visit time. Patricia Serrano MD documented in this encounter Miscellaneous Notes OB Summary Note - Patricia Serrano MD - 02/08/2020 4:15 PM CDTAge: 20 year old GA: 34w2d Supervision of high risk , antepartum Plan: Continue Monitoring Previous section complicating Comment: Records in [facility] from 04/08/2019, low transverse uterine incision Plan: Continue plans as per patient desire We will repeat ultrasound later in the third trimester to assess growth/weight Nausea and vomiting during Comment: GI upset today without other associated symptoms Plan: We will COVID screen.Patient states that she wants to go to the lab in [place]. She is aware that she should isolate until this result has been reviewed CMP, CBC Continue by mouth fluid intake Obesity and Comment: BMI 36.37. 3 lb weight Again since last visit, 25 lb TWG. Dietary counseling - avoid sweets, added sugars, sweetened beverages and processed carbs. Concentrate on lean proteins, vegetables andfruits, and healthy fats. Drink plenty of water. Try to get 30 minutes of moderate exercise/walking on most days. Return to clinic in 2 weeks. Patricia Serrano MD documented in this encounter Plan of Treatment Date Type Specialty Care Team Description 02/22/2020 Routine Obstetrics & Jerrell Serrano MD Visit Gynecology [address] [place] [phone] 02/29/2020 Routine Obstetrics & Jerrell Serrano MD Visit Gynecology [address] [place] [phone] 03/07/2020 Routine Obstetrics & Jerrell Serrano MD Visit Gynecology [address] [place] [phone] 03/14/2020 Routine Obstetrics & Jerrell Serrano MD Visit Gynecology [address] [place] [phone] 03/21/2020 Routine Obstetrics & Serrano, Jerrell hanna MD Visit Gynecology [address] [place] [phone] Name Type Priority Associated Diagnoses Order S chedule COVID-19 (PCR MOLECULAR LAB Routine Nausea and vomiti ng, Expected: 02/08/2020, TESTING) intractability of vomiting E xpires: 02/07/2021 not specified, unspecified vomiting type Supervision of other normal CBC WITH DIFF LAB Routine Nausea and vomiting, Expect ed: 02/08/2020, intractability of vomiting E xpires: 02/07/2021 not specified, unspecified vomiting type Supervision of other normal COMP. METABOLIC PANEL LAB Routine Nausea and vomiting , Expected: 02/08/2020, (89211) intractability of vomiting E xpires: 02/07/2021 not specified, unspecified vomiting type Supervision of other normal Health Maintenance Due Date Last Done Comments VARICELLA VACCINES (1 of 2 - 02/03/2000 2-dose childhood series) MENINGOCOCCAL B VACCINES (1 of 2009 2 - Risk Bexsero 2-dose series) HPV VACCINES (1 - 2-dose 2010 series) WELL CARE VISIT: 12-21 YEARS 2011 (yearly) INFLUENZA VACCINE (#1) 2020 PAP SMEAR 02/03/2020 CHLAMYDIA SCREENING 10/07/2020 10/08/2019, 08/30/2019 Depression Screening [...] filedocumented in this encounter Visit Diagnoses Diagnosis Nausea and vomiting, intractability of v omiting not specified, unspecified vomiting type - Primary Supervision of high risk , ante Supervision of other normal Previous section complicating p regnancy Previous delivery, unspecified as to episode of care or not applicable Obesity (BMI 30-39.9) Obesity, unspecified documented in this encounter Insurance Payer Benefit Plan / Subscriber ID Effective Dates Phone Addre ss Type Group AETNA AETNA O [id number] 2015-[facility] O t [place]DRENS [place]DRENS [id number] 2019-Present Medicaid HEALTH PLAN - [facility] MANAGED MEDICAID documented as of this encounter
--- OUTSIDE RECORDS SUMMARY | 2020-03-12 04:28 | XMS REPORT | Summary of Care ---
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 Reason for Visit Reason Comments Assessment Encounter Details Date Type Department Care Team Description 03/02/2020 Telephone [facility] Women's Patricia Serrano MD Assessment Healthcare-[address] [phone] [place], [place] [id number] [phone] [place] [phone] Allergies Active Allergy Reactions Severity Noted Date Comments Amoxicillin Hives 06/25/2019 Vomiting documented as of this encounter (statuses as of 03/03/2020) Medications Medication Sig Dispensed Refills Start Date [...] as of this encounter (statuses as of 03/03/2020) Active Problems Problem Noted Date Obesity (BMI 30-39.9) 08/02/2019 Estimated Date of Delivery Comments Yes 03/19/2020 Based on last menstr ual period of 06/13/2019 documented as of this encounter (statuses as of 03/03/2020) Immunizations Name Administration Dates Next Due TDAP [...] this encounter Miscellaneous Notes Telephone Encounter - Mitzi Espinoza RN - 03/03/2020 8:44 AM CDTCancelled future appointments. Called patient to provide her with medical records phone number and she was driving and unable to write the number down. Sent information via [employer]. elephone Encounter - Patricia Serrano MD - 03/02/2020 5:52 PM CDTI called the patient to check on her as she had missed her obstetrical appointment on 02/29/20. Patient identified herself by name and date of . Patient states that she has decided to have a repeat section. As she is not having a , she has decided to proceed with delivery and finish her care close to home in [place]. Please cancel any of patient's follow-up appointments with me. She understands that if she changes her situation, we would welcome her back immediately and prepare for the remainder of her /delivery. Meanwhile, please assist the patient with her transfer of records to assure that the remainder of her care has continuity for best maternal/ outcome. Patricia Serrano MD documented in this encounter Plan of Treatment Health Maintenance Due Date [...] Addre ss Type Group AETNA AETNA O [id number] 2015-[facility] O t [place] [id number] 2019-Present Medicaid HEALTH PLAN - HEALTH MANAGED MEDICAID documented as of this encounter
--- OUTSIDE RECORDS SUMMARY | 2020-03-12 04:28 | XMS REPORT | Summary of Care ---
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 Name [address] [address] Allergies Active Allergy Reactions Severity Noted Date Comments Amoxicillin Hives 06/25/2019 Vomiting documented as of this encounter (statuses as of 03/06/2020) Medications Medication Sig Dispensed Refills Start Date [...] as of this encounter (statuses as of 03/06/2020) Active Problems Problem Noted Date Obesity (BMI 30-39.9) 08/02/2019 Estimated Date of Delivery Comments Yes 03/19/2020 Based on last menstr ual period of 06/13/2019 documented as of this encounter (statuses as of 03/06/2020) Immunizations Name Administration Dates Next Due TDAP [...] filedocumented in this encounter Plan of Treatment Health [...] Name Priority Date/Time Associated Diagnosis Comme nts AUTHORIZATION FOR RELEASE Routine 02/12/2020 12:01 AM OF PHI CDT documented in this encounter Results Not on filedocumented in this encounter Insurance Payer Benefit Plan / Subscriber ID Effective Dates Phone Addre ss Type Group AETNA AETNA O [id number] 2015-[facility] O t [facility] [place]ILDRENS [id number] 2019-Present Medicaid HEALTH PLAN - [facility] MANAGED MEDICAID documented as of this encounter
--- OUTSIDE RECORDS SUMMARY | 2020-03-12 04:28 | XMS REPORT | Summary of Care ---
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 Patient identified herself by name and date of . Patient reports she feels much better today and that her episode was most likely secondary to dairy consumption. Patient did complete COVID testing at an urgent care and has the results, which was negative. She understands to continue precautions and will keep herfollow-up appointment as scheduled. Patricia Serrano MD documented in this encounter Plan of Treatment Date Type Specialty Care Team Description 02/22/2020 Routine Obstetrics & Jerrell Serrano MD Visit Gynecology [address] [place] [phone] 02/29/2020 Routine Obstetrics & Jerrell Serrano MD Visit Gynecology [address] [place] [phone] 03/07/2020 Routine Obstetrics & Jerrell Serrano MD Visit Gynecology [address] [place] [phone] 03/14/2020 Routine Obstetrics & Jerrell Serrano MD Visit Gynecology [address] [place] [phone] 03/21/2020 Routine Obstetrics & Jerrell Serrano MD Visit Gynecology [address] [place] [phone] Health Maintenance Due Date Last Done Comments [...] Addre ss Type Group AETNA AETNA O [id number] 2015-[facility] O [facility] [place]DRENS [id number] 2019-Present Medicaid HEALTH PLAN - HEALTH MANAGED MEDICAID documented as of this encounter
[2020-03-12] MEDS ORDERED: CLINDAMYCIN INJ 600 MG in NA CHLORIDE 0.9% 50 ML IV ONE ×2 (04:34→15:45)
[2020-03-12] MEDS ORDERED: NA CIT/CITRIC AC 30 ML ORAL UDC PO ONE (04:42)
[2020-03-12] MEDS ORDERED: Ringers Lactate 1,000 ML IV SCH (05:00)
[2020-03-12] MEDS ORDERED: METOCLOPRAMIDE 10 MG/2mL INJ IV SCH (05:00)
[2020-03-12 05:25] VITALS: BMI 37.8
[2020-03-12] MEDS ORDERED: CLINDAMYCIN 600MG/D5W 600 MG/50 ML BAG IV ONE ×2 (06:24→16:23)
[2020-03-12] MEDS ORDERED: METHYLERGONOVINE 0.2MG/ML AMP IM ONE (07:11)
[2020-03-12] MEDS ORDERED: CARBOPROST TROME 250 MCG/ML IM ONE (07:11)
[2020-03-12] MEDS ORDERED: OXYTOCIN 10 UNIT/ML ML IV ONE (07:29)
[2020-03-12] MEDS ORDERED: BUPIVACAINE 0.75% (PF) 2 ML SP ONE (07:30)
[2020-03-12] MEDS ORDERED: LIDOCAINE 1% MPF 5 ML VIAL ONE (07:30)
[2020-03-12] MEDS ORDERED: MORPHINE SULFATE/PF 1 MG/ML (10 ML AMP) ONE (07:31)
[2020-03-12] MEDS ORDERED: NS 0.9% VIAL 10 ML ONE ×2 (07:44→07:49)
[2020-03-12] MEDS ORDERED: EPHEDRINE SULF 50 MG/ML VIAL ONE (07:44)
[2020-03-12] MEDS ORDERED: Phenylephrine HCl 10 MG/ML 1 ML VIAL ONE (07:49)
[2020-03-12] MEDS ORDERED: ONDANSETRON 4 MG/2 ML VIAL ONE ×2 (07:49→11:30)
[2020-03-12] MEDS ORDERED: INFLUENZA VACCINE (for 3y+) 0.5 ML DOSE IMVAC ONE (08:00)
[2020-03-12] MEDS ORDERED: DIPHENHYDRAMINE 50 MG/ML VIAL IV PRN (08:20)
[2020-03-12] MEDS ORDERED: METHYLERGONOVINE 0.2MG/ML AMP IM PRN (08:21)
[2020-03-12] MEDS ORDERED: ACETAMINOPHEN 500 MG TAB PO PRN ×2 (08:21)
[2020-03-12] MEDS ORDERED: KETOROLAC 30 MG/ML INJ IV PRN (08:21)
[2020-03-12] MEDS ORDERED: ONDANSETRON 4 MG (ODT) TAB PO PRN (08:21)
[2020-03-12] MEDS ORDERED: BISACODYL 10 MG RECTAL SUPP PR PRN (08:21)
[2020-03-12] MEDS ORDERED: DIPHENHYDRAMINE 25 MG TAB/CAP PO PRN (08:21)
[2020-03-12] MEDS ORDERED: ONDANSETRON 4 MG/2 ML VIAL IV PRN (08:21)
[2020-03-12] MEDS ORDERED: Oxycodone HCl/Acetaminophen 1 TAB TAB PO PRN (08:21)
[2020-03-12] MEDS ORDERED: IBUPROFEN 200 MG TAB PO PRN (08:21)
[2020-03-12] MEDS ORDERED: PROMETHAZINE INJ 25 MG/ML AMP IV PRN (08:25)
[2020-03-12] MEDS ORDERED: PROMETHAZINE INJ 25 MG/ML AMP ONE (08:46)
[2020-03-12] MEDS ORDERED: OXYTOCIN/LR 20 UNIT/1,000 ML BAG IV SCH (09:00)
[2020-03-12] MEDS ORDERED: FAMOTIDINE 20 MG/2 ML VIAL IV SCH (09:00)
[2020-03-12] MEDS ORDERED: Ringers Lactate 1,000 ML IV ONE (09:32)
--- NOTE | 2020-03-12 09:59 | OP ---
Surgeon: Haseeb Nunez MD Social Services Assistant: Dannie Joe MD. Anesthesiologist: Dr. Blood. Indication: A 20-year-old 2, para 1, 39 weeks for repeat section. Infection; blood loss; anesthetic complications; injury to bladder, bowel, ureter; postoperative complications; clots in legs; pneumonia discussed. The patient knows fully well does not constitute all the possible pro blems that could occur during or following surgery. Anesthesia: Spinal block anesthesia. Procedure In Detail: After prepping and draping, time-out was performed. A Pfannenstiel incision wa s created over the preexisting incision. Incision was carried to the fascia. The fascia was incised . Incision was carried transversely bilaterally. Anterior and posterior fascial planes were develop ed with both blunt and sharp dissection. Peritoneum was entered. The patient was noted to have scar ring on the right side of the uterus, but this did not interfere with the surgical procedure. Low tr ansverse bladder flap developed and low transverse uterine incision created. With the aid of a Kiwi suction, a 7 pounds 11 ounces female was delivered Apgars 9 and 9. Cord blood specimen was obtained. Placenta was removed manually. Uterus was cleared of clot and blood exteriorized. Cervical os dil ated with ring clamp. Uterus was closed with a running lock stitch of 1 chromic followed by imbricat ing stitch of 1 chromic. The patient was given 0.2 mg of Methergine prophylactically. No heavy blee ding but mild hypotonus. Estimated blood loss during the procedure 800 to 900 cc or less. The patie nt remained stable throughout. Gutters were cleared of clot and blood. Uterus was replaced in the p eritoneal cavity. Again inspection of suture line showed no further bleeding. Two sutures with 0 Vi cryl were placed to reapproximate the rectus muscles. Then the fascia was closed with 1 Vicryl runni ng from either angle to the midline. Subcutaneous tissue was closed with 2-0 plain. Timothy were us ed for the skin. The patient had been given 600 mg of Cleocin for prophylaxis. Tolerated all proced ures well. Transferred back to her room in good condition. Final Diagnoses: Term intrauterine , repeat section, spinal block anesthesia. Yossi y mild uterine hypertonus. Anterior scarring on the right side, mild. NBC/MODL Voice ID: [id number] Report ID: [id number]
[2020-03-12] MEDS: D5LR 1,000 ML with OXYTOCIN 20 UNIT IV SCH ×2 (11:20)
[2020-03-12] MEDS ORDERED: DIPHENHYDRAMINE 50 MG/ML VIAL ONE (11:36)
[2020-03-12] MEDS ORDERED: NALOXONE 0.4 MG/ML VIAL IV PRN (12:21)
[2020-03-12] MEDS ORDERED: CEFAZOLIN/SWI 1gm 1 GM/10 ML SYR IV SCH (15:00)
[2020-03-12] MEDS: Oxycodone HCl/Acetaminophen 1 TAB TAB PO PRN (23:30)
[2020-03-13] MEDS: D5LR 1,000 ML with OXYTOCIN 20 UNIT IV SCH ×2 (04:00)
[2020-03-13] MEDS: IBUPROFEN 600 MG TAB PO PRN ×2 (07:45→17:35)
[2020-03-13] MEDS ORDERED: MAGNESIUM HYDROXIDE 8% 30 ML PO PRN (08:22)
--- NOTE | 2020-03-13 09:18 | PN ---
A 20-year-old female, who underwent repeat section low transverse cervical. H and H with mi nimal change pre and postop. Lochia is normal. She has already ambulated. We will discontinue Fole y and IV. No post spinal block problems. Her pruritus which she had initially has resolved. We yoandy l monitor the patient today. If all goes well, dismiss tomorrow. Full dismissal instructions given today. We will go over those again tomorrow. Tdap and flu shots have been discussed thoroughly herlindahailee ng her and we will also remind her again tomorrow. No problems at this point. Doing well. EMBER/BOBBI Voice ID: [id number] Report ID: [id number]
[2020-03-13] MEDS: Oxycodone HCl/Acetaminophen 1 TAB TAB PO PRN (12:05)
[2020-03-14 07:27] VITALS: BP 95/54; TEMP 97.1
[2020-03-14] MEDS ORDERED: INFLUENZA VACCINE (for 3y+) 0.5 ML DOSE IMVAC ONE (09:00)
--- NOTE | 2020-03-17 11:07 | DS ---
Date of Discharge: 03/14/2020 A 20-year-old female who underwent repeat section at 39 weeks. Delivery of a 7 pounds 11 ou nces female, Apgars 9 and 9. Spinal block anesthesia, mild uterine hypertonus, 800 to 900 cc blood l oss. Noted to have anterior scarring on the right side of the uterine incision. ; afebril e, ambulating and voiding. Lochia is normal. H and H with minimal change. She will continue to kong e iron as she was anemic on admission. No post spinal block problems. Dismissed with tramadol for a nalgesia. To report to my office on Tuesday for staple removal, sooner if any problems, fever, sev ere pain, bleeding problems, or any other type of difficulties. Has a little bit of nipple irritatio n. I suggested she air out her nipples, put on and probably use a breast pump on the rig t breast to prevent any infection. Final Diagnoses: Term intrauterine . Repeat section. Mild uterine hypotonus, sca rring on the right side of the uterus. EMBER/BOBBI Voice ID: [id number] Report ID: [id number]
== END 2020-03-14 08:30 | disposition home or self-care (01) | DRG 788 ==
LOC: 2ND-WC 04:24
PROVIDERS: ADMIT Specialist; ATTEND Specialist
PROC: 10907ZC Drainage of Amniotic Fluid, Therapeutic from Products of Conception, Via Natural or Artificial Opening (ICD-10-PCS; 2020-03-12)
PROC: 10D00Z1 Extraction of Products of Conception, Low, Open Approach (ICD-10-PCS; principal; 2020-03-12 07:30)
DX: O34.211 Maternal care for low transverse scar from previous cesarean delivery (principal); Z3A.39 39 weeks gestation of pregnancy; Z37.0 Single live birth; Z20.828 Contact with and (suspected) exposure to other viral communicable diseases; Z23 Encounter for immunization; O62.2 Other uterine inertia
CPT/HCPCS: 36415; 81001; 85014; 85025; 85610; 85730; 86592; 86850; 86900; 86901; 87340; 88307; 90471; J1200; J2210; J2370; J2405; J2550; J2590; J2765; J7120; J7121; Q2035; U0003